=== PATIENT | female | born 1970 | race Caucasian/White ===

== ENCOUNTER 2016-08-21 18:51 | Emergency (ER) | payer SELFPAY ==
[2016-08-21] MEDS ORDERED: MORPHINE SULFATE INJ 10 MG/ML VIAL IV ONE ×2 (19:19→21:52)
[2016-08-21] MEDS ORDERED: ONDANSETRON INJ 4 MG/2 ML VIAL IV ONE (19:19)
[2016-08-21] MEDS ORDERED: ONDANSETRON INJ 4 MG/2 ML VIAL IM ONE (19:32)
[2016-08-21] MEDS ORDERED: MORPHINE SULFATE INJ 10 MG/ML VIAL IM ONE (19:32)
--- NOTE | 2016-08-21 19:55 | RAD ---
EXAM DESCRIPTION: X-RAY CHEST- One View CLINICAL HISTORY: Shortness of breath. COMPARISON: 07/17/2016 TECHNIQUE: Single view of the chest. FINDINGS: There are no discrete air space infiltrates, pneumothoraces or pleural effusions. The pulmonary vascularity is normal. 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 There is presence of a stent in the proximal trachea. The cardiomediastinal silhouette is stable. IMPRESSION: There are no acute lung parenchymal findings. 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 Note is again made of a stent in the proximal trachea. Electronically signed by: Aravind Boucher MD 08/21/2016 19:52
--- NOTE | 2016-08-21 19:57 | RAD ---
EXAM DESCRIPTION: XR CERVICAL SPINE 1 VIEW CLINICAL HISTORY: 45 y/o [facility] COMPARISON: None. FINDINGS: Single lateral view of the cervical spine. The prevertebral soft tissues appear unremarkable. The adenoidal tonsillar tissues and lingular tonsillar tissues appear prominent. The epiglottis does not appear enlarged. No radiopaque foreign body is identified. Mild degenerative changes in the spine. IMPRESSION: The adenoidal tonsillar tissues and lingular tonsillar tissues appear prominent which could be from inflammatory change although other etiology is not excluded. Correlation with clinical symptoms is recommended. Electronically signed by: Hudson Ansari MD 08/21/2016 19:56
[2016-08-21] MEDS ORDERED: cefTRIAXone SODIUM 1 GM VIAL ONE (20:43)
[2016-08-21] MEDS ORDERED: LIDOCAINE 1% 10 ML VIAL INJ ONE (20:44)
[2016-08-21] MEDS ORDERED: methylPREDNISolone SODIUM SUC 125 MG/2 ML VIAL ONE (20:44)
[2016-08-21] MEDS ORDERED: cefTRIAXone SODIUM 1 GM VIAL IM ONE (20:48)
[2016-08-21] MEDS ORDERED: methylPREDNISolone SODIUM SUC 125 MG/2 ML VIAL IM ONE (20:48)
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
[2016-08-21 22:33] VITALS: TEMP 97.9
[2016-08-21] MEDS ORDERED: SODIUM CHLORIDE 0.9% 1000ML 1,000 ML IVS PRN (22:55)
[2016-08-21] MEDS ORDERED: diphenhydrAMINE HCL 50 MG/ML VIAL ONE (22:56)
[2016-08-21] MEDS ORDERED: diphenhydrAMINE HCL 50 MG/ML VIAL IV ONE (23:09)
[2016-08-21 23:28] VITALS: BP 113/73; O2SAT 94
== END 2016-08-21 23:15 | disposition short-term general hospital (02) ==
LOC: ER 18:51
DX: J39.8 Other specified diseases of upper respiratory tract (principal); R13.13 Dysphagia, pharyngeal phase; E86.0 Dehydration; Z91.040 Latex allergy status; Z96.89 Presence of other specified functional implants